=== PATIENT | male | born 1985 | race Hispanic/Latino ===

== ENCOUNTER 2016-04-17 06:45 | Emergency (ER) | payer SELFPAY ==
[2016-04-17 07:27] VITALS: BP 145/104
== END 2016-04-17 07:16 | disposition left against medical advice (07) ==
LOC: ED 06:45
DX: S20.211A Contusion of right front wall of thorax, initial encounter (principal); M54.5 Low back pain; V89.2XXA Person injured in unspecified motor-vehicle accident, traffic, initial encounter; Y93.89 Activity, other specified; Y99.9 Unspecified external cause status; Y92.410 Unspecified street and highway as the place of occurrence of the external cause; Z53.21 Procedure and treatment not carried out due to patient leaving prior to being seen by health care provider